=== PATIENT | female | born 1995 | race Caucasian/White ===

== ENCOUNTER 2021-06-29 08:55 | Emergency (ER) | payer MEDICAID ==
[~2021-06-29] VITALS: Ht 162.6 cm; Wt 59.1 kg
[2021-06-29 09:14] VITALS: BP 121/80
[2021-06-29] MEDS ORDERED: TETanus/Pertussis (Acell)/Diphther VAC/PF (Tdap-Adult) 0.5ml syringe IMVAC ONE (12:00)
[2021-06-29] MEDS ORDERED: LIDOcaine 1% W/epiNEPHrine 1:200,000 10ml vial IJ ONE (12:00)
[2021-06-29] MEDS ORDERED: CEPH250T PO (13:06)
[2021-06-29] MEDS ORDERED: HYDR-3965 PO (13:06)
--- NOTE | 2021-06-29 14:56 | NUR ---
PT REFUSED TETANUS SHOT.
== END 2021-06-29 15:00 | disposition home or self-care (01) ==
LOC: ER 08:56
DX: S81.012A Laceration without foreign body, left knee, initial encounter (principal); Z79.2 Long term (current) use of antibiotics; Z79.899 Other long term (current) drug therapy; W19.XXXA Unspecified fall, initial encounter; Y93.01 Activity, walking, marching and hiking; Y92.89 Other specified places as the place of occurrence of the external cause; Y99.8 Other external cause status
CPT/HCPCS: 12032; 73560; 90715; 99283

== ENCOUNTER 2022-02-15 20:10 | Emergency (ER) | payer MEDICAID | END 2022-02-15 22:40 | disposition left against medical advice (07) | LOC: ER 20:11 | DX: T65.91XA Toxic effect of unspecified substance, accidental (unintentional), initial encounter (principal); Y92.89 Other specified places as the place of occurrence of the external cause; Z53.21 Procedure and treatment not carried out due to patient leaving prior to being seen by health care provider ==

== ENCOUNTER 2023-05-20 00:10 | Emergency (ER) | payer MEDICAID ==
[~2023-05-20] VITALS: Ht 162.6 cm; Wt 64.0 kg
[2023-05-20 00:17] VITALS: BP 117/81; PULSE 89; RESP 18; TEMP 97.6; O2SAT 100
--- NOTE | 2023-05-20 00:45 | NUR ---
got her a sweatshirt and sweatpants and a aliyahcho
== END 2023-05-20 01:34 | disposition home or self-care (01) ==
LOC: ER 00:12
DX: T75.89XA Other specified effects of external causes, initial encounter (principal); X58.XXXA Exposure to other specified factors, initial encounter; Y93.89 Activity, other specified; Y92.89 Other specified places as the place of occurrence of the external cause; Y99.8 Other external cause status
CPT/HCPCS: 99281